=== PATIENT | female | born 1960 | race Caucasian/White ===

== ENCOUNTER → 2019-11-04 10:00 | Outpatient (BNVA) | payer OTHER, SELFPAY | PROVIDERS: Family Provider Family Medicine; Visit Provider Internal Medicine | DX: A68.9 Relapsing fever, unspecified (principal); E03.9 Hypothyroidism, unspecified; E11.9 Type 2 diabetes mellitus without complications | CPT/HCPCS: 80053; 84443; 85025; 85651; 86140 ==

== ENCOUNTER 2019-11-10 07:59 | Outpatient (CLI) | payer SELFPAY ==
--- NOTE | 2019-11-10 08:30 | CT_ITS ---
WS: [id number] CT scan of the sinuses without IV contrast. Additional two-dimensional coronal and sagittal reconstru ction was performed. 11/10/2019 Clinical Data: eval for possible sinusitis. Comparison: None. DLP: 338.[address] scans at [facility] use at least one of these dose optimization techniques: automat ed exposure control; mA and/or kV adjustment per patient size (includes targeted exams where dose is matched to clinical indication); or iterative reconstruction. Findings: The sinus cavities show no air-fluid levels or bone destruction. There is minimal mucoperiosteal thic kening in the inferior aspect of the left maxillary sinus and in the right sphenoid sinus. The orbits are intact. The nasal bones are unremarkable. The intraorbital contents show no abnormalities. CT/CT sinus wo con* [id number] Impression: Minimal chronic left maxillary and right sphenoid sinusitis.
== END 2019-11-10 08:00 | disposition home or self-care (01) ==
LOC: RADWPI 08:07
PROVIDERS: Family Provider Family Medicine; PCP Family Medicine; Visit Provider Internal Medicine
DX: J32.3 Chronic sphenoidal sinusitis (principal); J32.0 Chronic maxillary sinusitis
CPT/HCPCS: 70486

== ENCOUNTER → 2019-11-29 16:24 | Outpatient (BNVA) | payer OTHER, SELFPAY | PROVIDERS: Family Provider Family Medicine; PCP Family Medicine; Visit Provider Internal Medicine | DX: R00.2 Palpitations (principal); E11.9 Type 2 diabetes mellitus without complications | CPT/HCPCS: 80053; 83036; 84443; 85025 ==

== ENCOUNTER 2019-12-28 13:56 | Outpatient (CLI) | payer OTHER, SELFPAY ==
--- NOTE | 2019-12-28 14:30 | MM_ITS ---
WS: [id number] SCREENING DIGITAL MAMMOGRAM WITH CAD HISTORY: Screening exam. COMPARISON: None available. Bilateral CC and MLO views submitted. Computer aided detection analyzed. Breast composition: There are scattered areas of fibroglandular density. Asymmetries in the RIGHT venkat ast need further evaluation. One of these asymmetries is central to the RIGHT nipple at a middle dept h. There is a second asymmetry measuring 6 mm seen on the RIGHT MLO projection above the nipple line. These are probably not the same asymmetry. LEFT breast is negative. MM/[place] [id number] IMPRESSION: BI-RADS: 0-Incomplete: Need additional imaging evaluation FOLLOW UP: Need Additional Imaging RIGHT breast: Spot compression views (CC and MLO). True ML. Ultrasound to follo w if abnormality persists.
== END 2019-12-28 13:57 | disposition home or self-care (01) ==
LOC: RADSHAW 14:00
PROVIDERS: PCP Family Medicine; Visit Provider Internal Medicine
DX: Z12.31 Encounter for screening mammogram for malignant neoplasm of breast (principal); N64.89 Other specified disorders of breast
CPT/HCPCS: 77067

== ENCOUNTER 2020-03-09 13:04 | Outpatient (CLI) | payer OTHER, SELFPAY ==
--- NOTE | 2020-03-09 13:13 | MM_ITS ---
WS: [id number] Right breast breast diagnostic digital mammogram, 03/09/2020 Clinical Data: RT BREAST ASYMMETRY Comparison: 12/28/2019. Findings: The compression images in the CC and MLO projections and also the ML view of the right breast show th at the asymmetries are no longer present. No spiculated masses or clustered calcifications are seen. There are no secondary signs of carcinoma. MM/[place] [id number] Impression: 1. Negative right breast mammogram. 2. Return to annual screening mammograms. BIRADS: 2-Benign FOLLOW UP: 1 Year Follow-up The CAD maturity checker was used.
== END 2020-03-09 13:05 | disposition home or self-care (01) ==
LOC: RADSHAW 13:09
PROVIDERS: PCP Family Medicine; Visit Provider Nurse Practitioner Family
DX: N64.89 Other specified disorders of breast (principal)
CPT/HCPCS: 77065